=== PATIENT | male | born 2000 | race Caucasian/White ===

== ENCOUNTER 2022-05-29 00:22 | Emergency (ER) | payer OTHER ==
[~2022-05-29] VITALS: Ht 165.1 cm; Wt 98.2 kg
[2022-05-29] MEDS ORDERED: KETOROLAC 60MG/2ML VIAL IM ONE (03:00)
[2022-05-29 03:33] VITALS: BP 136/99
[2022-05-29] MEDS ORDERED: IBUP-2029 MT (04:53)
== END 2022-05-29 05:10 | disposition home or self-care (01) ==
LOC: ER 00:22
DX: S20.211A Contusion of right front wall of thorax, initial encounter (principal); S61.211A Laceration without foreign body of left index finger without damage to nail, initial encounter; I10 Essential (primary) hypertension; V43.52XA Car driver injured in collision with other type car in traffic accident, initial encounter; Y93.89 Activity, other specified; Y92.488 Other paved roadways as the place of occurrence of the external cause
CPT/HCPCS: 71250; 73130; 74176; 96372; 99284; J1885